=== PATIENT | female | born 1995 | race Two or more races ===

== ENCOUNTER 2017-09-16 09:49 | Emergency (ER) | payer OTHER ==
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
== END 2017-09-16 11:05 | disposition home or self-care (01) ==
LOC: JD.ED 09:49
DX: S06.0X0A Concussion without loss of consciousness, initial encounter (principal); V43.62XA Car passenger injured in collision with other type car in traffic accident, initial encounter
CPT/HCPCS: 99283

== ENCOUNTER 2018-06-28 19:18 | Emergency (ER) | payer BC ==
[2018-06-28] MEDS ORDERED: Sodium Chloride 0.9% 1,000 ML IV STA (19:49)
[2018-06-28] MEDS ORDERED: Sodium Chloride 0.9% 10 ML Syringe FLUSH PRN (19:49)
[2018-06-28] MEDS ORDERED: Metoclopramide 10 MG/2 ML SDV IVPUSH ONE (19:49)
--- NOTE | 2018-06-28 20:15 | EDM.PDOC ---
ED HPI GENERAL MEDICAL PROBLEM - General Chief Complaint: Gastrointestinal Problem Stated Complaint: VOMMITTING 24 HOURS 20 WEEKS PREG Time Seen by Provider: 06/28/18 19:39 Source of Information: Reports: Patient History Limitations: Reports: No Limitations - History of Present Illness INITIAL COMMENTS - FREE TEXT/NARRATIVE: The patient presents with vomiting for the past 14 hours. She is G1 at 20 weeks gestation. Her LNMP was February 08. She had some generalized abdominal pain but that is better. She denies fever, chills, cough, congestion, diarrhea or dysuria. She had some morning sickness in the first week or 2 of her but not much since. She has not been around anyone who is sick and she does not think she ate any bad food. She has no medical problems. Onset: Gradual Duration: Hour(s): (14) Location: Reports: Abdomen Quality: Reports: Ache Severity: Mild Improves with: Reports: None Worsens with: Reports: None Associated Symptoms: Reports: Nausea/Vomiting. Denies: Chest Pain, Cough, Fever /Chills, Headaches, Shortness of Breath Abdomen Pain Score (Numeric/FACES): 1 - Related Data Allergies Allergy/AdvReac Type Severity Reaction Status Date / Time No Known Allergies Allergy Verified 09/16/17 10:08 Home Meds: Home Meds Ondansetron [Zofran ODT] 4 mg PO Q6H PRN #20 tab.dis 06/28/18 [Rx] [id number]/Iron Fumarate/FA/DSS [ 19 Tablet] 1 tab PO DAILY 06/28/18 [ History] Past Medical History - Past Health History Medical/Surgical History: Denies Medical/Surgical History [employer] History: Reports: Social & Family History - Tobacco Use Smoking Status *Q: Never Smoker - Caffeine Use Caffeine Use: Reports: Coffee, Soda - Recreational Drug Use Recreational Drug Use: No ED ROS GENERAL - Review of Systems Review Of Systems: See Below Constitutional: Reports: No Symptoms HEENT: Reports: No Symptoms Respiratory: Reports: No Symptoms Cardiovascular: Reports: No Symptoms Endocrine: Reports: No Symptoms GI/Abdominal: Reports: Abdominal Pain, Nausea, Vomiting. Denies: Diarrhea : Reports: No Symptoms Musculoskeletal: Reports: No Symptoms Skin: Reports: No Symptoms ED EXAM, GI/ABD - Physical Exam Exam: See Below Exam Limited By: No Limitations General Appearance: Alert, No Apparent Distress Ears: Normal External Exam Nose: Normal Inspection Head: Atraumatic, Normocephalic Neck: Normal Inspection Respiratory/Chest: No Respiratory Distress, Lungs Clear, Normal Breath Sounds Cardiovascular: Regular Rate, Rhythm, No Edema, No Murmur GI/Abdominal Exam: Soft, Non-Tender, Other (Uterus is nontender and is at the umbilicus) Course - Vital Signs Last Recorded V/S: Last Vital Signs Temp 97.5 F 06/28/18 19:33 Pulse 109 H 06/28/18 19:33 Resp 20 06/28/18 19:33 BP 108/66 06/28/18 19:33 Pulse Ox 100 06/28/18 19:33 - Orders/Labs/Meds Orders: Active Orders 24 hr Category Date Time Status Peripheral IV Care [RC] . DIRECTED Care 06/28/18 19:49 Active CBC WITH AUTO DIFF [HEME] Stat Lab 06/28/18 19:55 Results UA W/MICROSCOPIC [URIN] Stat Lab 06/28/18 21:05 Results Sodium Chloride 0.9% [Saline Flush] Med 06/28/18 19:49 Active 10 ml FLUSH ASDIRECTED PRN ED Antiemetic Medication Reflex [OM.PC] Stat Oth 06/28/18 19:49 Ordered Peripheral IV Insertion Adult [OM.PC] Stat Oth 06/28/18 19:49 Ordered Medication Orders Sodium Chloride (Saline Flush) 10 ml FLUSH ASDIRECTED PRN PRN Reason: Keep Vein Open Last Admin: 06/28/18 19:59 Dose: 10 ml Labs: Laboratory Tests 06/28/18 06/28/18 06/28/18 Range/Units 19:55 19:55 21:05 WBC 11.08 H (3.98-10.04) K/mm3 RBC 4.05 (3.98-5.22) M/mm3 Hgb 12.3 (11.2-15.7) gm/L Hct 37.5 (34.1-44.9) % MCV 92.6 (79.4-94.8) fl MCH 30.4 (25.6-32.2) pg MCHC 32.8 (32.2-35.5) g/dl RDW Std Deviation 44.7 (36.4-46.3) fL Plt Count 189 (182-369) K/mm3 MPV 11.6 (9.4-12.3) fl Neut % (Auto) 89.2 H (34.0-71.1) % Lymph % (Auto) 4.9 L (19.3-51.7) % [place] % (Auto) 5.3 (4.7-12.5) % Eos % (Auto) 0 L (0.7-5.8) Baso % (Auto) 0.1 (0.1-1.2) % Neut # (Auto) 9.88 H (1.56-6.13) K/mm3 Lymph # (Auto) 0.54 L (1.18-3.74) K/mm3 [place] # (Auto) 0.59 H (0.24-0.36) K/mm3 Eos # (Auto) 0.00 L (0.04-0.36) K/mm3 Baso # (Auto) 0.01 (0.01-0.08) K/mm3 Sodium 139 (136-145) mEq/L Potassium 3.6 (3.5-5.1) mEq/L Chloride 103 (98-107) mEq/L Carbon Dioxide 26 (21-32) mEq/L Anion Gap 13.6 (5-15) BUN 9 (7-18) mg/dL Creatinine 0.5 L (0.55-1.02) mg/dL Est Cr Clr Drug Dosing 152.40 mL/min Estimated GFR (MDRD) > 60 (>60) mL/min BUN/Creatinine Ratio 18.0 (14-18) Glucose 116 H (74-106) mg/dL Calcium 8.9 (8.5-10.1) mg/dL Total Bilirubin 0.7 (0.2-1.0) mg/dL AST 33 (15-37) U/L ALT 34 (14-59) U/L Alkaline Phosphatase 94 (46-116) U/L Total Protein 6.6 (6.4-8.2) g/dl Albumin 3.0 L (3.4-5.0) g/dl Globulin 3.6 gm/dL Albumin/Globulin Ratio 0.8 L (1-2) Urine Color Yellow (Yellow) Urine Appearance Clear (Clear) Urine pH 6.0 (5.0-8.0) Ur Specific [place] > or = 1.030 (1.005-1.030) Urine Protein 1+ H (Negative) Urine Glucose (UA) Negative (Negative) Urine Ketones 3+ H (Negative) Urine Occult Blood Trace-lysed H (Negative) Urine Nitrite Negative (Negative) Urine Bilirubin Negative (Negative) Urine Urobilinogen 0.2 (0.2-1.0) Ur Leukocyte Esterase Negative (Negative) Meds: Medications Generic Name Dose Route Start Last Admin Trade Name Freq PRN Reason Stop Dose Admin Sodium Chloride 10 ml 06/28/18 19:49 06/28/18 19:59 Saline Flush FLUSH 10 ml ASDIRECTED PRN Administration Keep Vein Open Discontinued Medications Generic Name Dose Route Start Last Admin Trade Name Freq PRN Reason Stop Dose Admin Sodium Chloride 1,000 mls @ 1,000 mls/hr 06/28/18 19:49 06/28/18 19:59 Normal Saline IV 06/28/18 20:48 1,000 mls/hr .BOLUS STA Administration Metoclopramide HCl 10 mg 06/28/18 19:49 06/28/18 19:59 Reglan IVPUSH 06/28/18 19:50 10 mg ONETIME ONE Administration - Re-Assessments/Exams Free Text/Narrative Re-Assessment/Exam: 06/28/18 20:15 I ordered an IV NS 1L bolus, reglan 10mg IV, labs and UA. 06/28/18 20:46 FHTs were 152. 06/28/18 21:17 Her WBC was slightly elevated at 11.08. Her CMP looks good. She feels better. She would like to try something to drink and eat. I am waiting on the UA. 06/28/18 21:32 Her urine shows no UTI. I will discharge her home with some zofran. Departure - Departure Time of Disposition: 21:35 Disposition: Home, Self-Care 01 Condition: Good Clinical Impression: Qualifiers: Weeks of gestation: 20 weeks Qualified Code(s): Z3A.20 - 20 weeks gestation of Vomiting Qualifiers: Vomiting type: unspecified Vomiting Intractability: non-intractable Nausea presence: with nausea Qualified Code(s): R11.2 - Nausea with vomiting, unspecified - Discharge Information *PRESCRIPTION DRUG MONITORING PROGRAM REVIEWED*: Not Applicable *COPY OF PRESCRIPTION DRUG MONITORING REPORT IN PATIENT ALVERTO: Not Applicable Prescriptions: Ondansetron [Zofran ODT] 4 mg PO Q6H PRN #20 tab.dis PRN Reason: Nausea\vomiting Referrals: Tess Coyle MD [Primary Care Provider] - 1 Week Forms: ED Department Discharge Additional Instructions: Drink plenty of fluids. Take the zofran every 6 hours as needed for nausea or vomiting. Please return if you are worse. - My Orders Last 24 Hours: My Active Orders 06/28/18 19:49 Peripheral IV Care [RC] . DIRECTED Sodium Chloride 0.9% [Saline Flush] 10 ml FLUSH ASDIRECTED PRN ED Antiemetic Medication Reflex [OM.PC] Stat Peripheral IV Insertion Adult [OM.PC] Stat 06/28/18 19:55 CBC WITH AUTO DIFF [HEME] Stat 06/28/18 21:05 UA W/MICROSCOPIC [URIN] Stat - Assessment/Plan Last 24 Hours: My Active Orders 06/28/18 19:49 Peripheral IV Care [RC] . DIRECTED Sodium Chloride 0.9% [Saline Flush] 10 ml FLUSH ASDIRECTED PRN ED Antiemetic Medication Reflex [OM.PC] Stat Peripheral IV Insertion Adult [OM.PC] Stat 06/28/18 19:55 CBC WITH AUTO DIFF [HEME] Stat 06/28/18 21:05 UA W/MICROSCOPIC [URIN] Stat
== END 2018-06-28 21:40 | disposition home or self-care (01) ==
LOC: JD.ED 19:18
DX: O21.9 Vomiting of pregnancy, unspecified (principal); Z79.899 Other long term (current) drug therapy; Z3A.20 20 weeks gestation of pregnancy
CPT/HCPCS: 36415; 80053; 81001; 85025; 96374; 99284; J2765; J7040; 99283

== ENCOUNTER 2020-08-22 02:44 | Emergency (ER) | payer SELFPAY ==
--- NOTE | 2020-08-22 03:15 | EDM.PDOC ---
ED HPI GENERAL MEDICAL PROBLEM - General Chief Complaint: Abdominal Pain Stated Complaint: LOW SUGAR LEVELS Time Seen by Provider: 08/22/20 02:53 Source of Information: Reports: Patient, Family History Limitations: Reports: No Limitations - History of Present Illness INITIAL COMMENTS - FREE TEXT/NARRATIVE: This is a 25-year-old female. Apparently earlier this morning she started having some lower abdominal pain and possibly cramping. She got nauseated and then became pale and dizzy and weak and thought maybe her blood sugar was getting low so she drank some juice and began to feel better but she continued to have the lower abdominal pain. She believes her menstrual period is going to be next week so this is kind of out of character to have pain down there. And at times with her menstrual period she has had moments of hypoglycemia. She felt like she was having hypoglycemia with the abdominal pain this morning so she comes to the ER for evaluation. Her bedside glucose was 92 in the ER she did not check her blood sugar at home. She is still complaining of some lower abdominal soreness but much of the pain has resolved now. She states also last Monday she took Plan B which is a control method because she thought she might be in an effort not to become . She denies any fever or chills no cough no other illnesses. When she was having the severe lower abdominal pain and the paleness and dizziness and nausea she did go to the bathroom and have a normal bowel movement and no diarrhea. Lower Abdomen Pain Score (Numeric/FACES): 4 - Related Data Allergies Allergy/AdvReac Type Severity Reaction Status Date / Time No Known Allergies Allergy Verified 08/22/20 02:58 Home Meds: Home Meds Prenat 115/Iron Fum/Folic/Dss [ 19 Tablet] 1 tab PO DAILY 06/28/18 [History] Docusate Sodium [Colace] 100 mg PO BID PRN cap 11/15/18 [Rx] Ibuprofen [Motrin] 600 mg PO Q6H PRN tablet 11/15/18 [Rx] Past Medical History - Past Health History Medical/Surgical History: Denies Medical/Surgical History Cardiovascular History: Reports: None Respiratory History: Reports: None Gastrointestinal History: Reports: G[employer]OR History: Reports: Endocrine/Metabolic History: Reports: Other (See Below) Other Endocrine/Metabolic History: hypoglycemia Social & Family History - Family History Family Medical History: No Pertinent Family History - Tobacco Use Tobacco Use Status *Q: Never Tobacco User Second Hand Smoke Exposure: No - Caffeine Use Caffeine Use: Reports: Soda - Recreational Drug Use Recreational Drug Use: No ED ROS GENERAL - Review of Systems Review Of Systems: See Below Constitutional: Reports: Weakness. Denies: Fever, Chills HEENT: Reports: No Symptoms Respiratory: Denies: Shortness of Breath, Cough Cardiovascular: Denies: Chest Pain Endocrine: Reports: No Symptoms GI/Abdominal: Reports: Abdominal Pain, Nausea. Denies: Constipation, Diarrhea, Vomiting : Denies: Discharge, Dysuria Musculoskeletal: Reports: No Symptoms Skin: Reports: No Symptoms Neurological: Reports: Dizziness Psychiatric: Reports: No Symptoms Hematologic/Lymphatic: Reports: No Symptoms ED EXAM, GI/ABD - Physical Exam Exam: See Below Exam Limited By: No Limitations General Appearance: Alert, WD/WN, No Apparent Distress Eyes: Bilateral: Normal Appearance Ears: Normal External Exam Throat/Mouth: Normal Voice, No Airway Compromise Head: Normocephalic Neck: Supple Respiratory/Chest: No Respiratory Distress, Lungs Clear, Normal Breath Sounds Cardiovascular: Regular Rate, Rhythm, No Murmur GI/Abdominal Exam: Soft, Other (There is some mild soreness in the lower abdomen across the entire lower abdomen not 1 side or the other, the upper abdomen does not appear to be tender, she does have bowel sounds.) Back Exam: Normal Inspection, Full Range of Motion Extremities: Normal Inspection, Normal Range of Motion Neurological: Alert, Oriented Psychiatric: Normal Affect, Normal Mood Skin Exam: Warm, Dry Course - Vital Signs Last Recorded V/S: Last Vital Signs Temp 96.9 F 08/22/20 02:58 Pulse 90 08/22/20 02:58 Resp 17 08/22/20 02:58 BP 110/87 08/22/20 02:58 Pulse Ox 100 08/22/20 02:58 - Orders/Labs/Meds Orders: Active Orders 24 hr Category Date Time Status Blood Glucose Check, Bedside [RC] ONETIME Care 08/22/20 03:00 Active Labs: Laboratory Tests 08/22/20 08/22/20 08/22/20 Range/Units 02:53 03:25 03:25 WBC 6.65 (3.98-10.04) K/mm3 RBC 4.28 (3.98-5.22) M/mm3 Hgb 13.2 (11.2-15.7) gm/dl Hct 40.2 (34.1-44.9) % MCV 93.9 (79.4-94.8) fl MCH 30.8 (25.6-32.2) pg MCHC 32.8 (32.2-35.5) g/dl RDW Std Deviation 42.9 (36.4-46.3) fL Plt Count 190 (182-369) K/mm3 MPV 11.9 (9.4-12.3) fl Neut % (Auto) 58.2 (34.0-71.1) % Lymph % (Auto) 33.1 (19.3-51.7) % [place] % (Auto) 7.5 (4.7-12.5) % Eos % (Auto) 0.8 (0.7-5.8) Baso % (Auto) 0.2 (0.1-1.2) % Neut # (Auto) 3.88 (1.56-6.13) K/mm3 Lymph # (Auto) 2.20 (1.18-3.74) K/mm3 [place] # (Auto) 0.50 H (0.24-0.36) K/mm3 Eos # (Auto) 0.05 (0.04-0.36) K/mm3 Baso # (Auto) 0.01 (0.01-0.08) K/mm3 Sodium (136-145) mEq/L Potassium (3.5-5.1) mEq/L Chloride (98-107) mEq/L Carbon Dioxide (21-32) mEq/L Anion Gap (5-15) BUN (7-18) mg/dL Creatinine (0.55-1.02) mg/dL Est Cr Clr Drug Dosing mL/min Estimated GFR (MDRD) (>60) mL/min BUN/Creatinine Ratio (14-18) Glucose (74-106) mg/dL POC Glucose 92 (70-99) mg/dL Calcium (8.5-10.1) mg/dL Total Bilirubin (0.2-1.0) mg/dL AST (15-37) U/L ALT (14-59) U/L Alkaline Phosphatase (46-116) U/L Total Protein (6.4-8.2) g/dl Albumin (3.4-5.0) g/dl Globulin gm/dL Albumin/Globulin Ratio (1-2) HCG, Qual (NEGATIVE) Urine Color Tyesha H (Yellow) Urine Appearance Clear (Clear) Urine pH 6.5 (5.0-8.0) Ur Specific [place] > or = 1.030 (1.005-1.030) Urine Protein 1+ H (Negative) Urine Glucose (UA) Negative (Negative) Urine Ketones Negative (Negative) Urine Occult Blood Trace-intact H (Negative) Urine Nitrite Negative (Negative) Urine Bilirubin 1+ H (Negative) Urine Urobilinogen 0.2 (0.2-1.0) Ur Leukocyte Esterase Trace H (Negative) Urine RBC 0-5 (0-5) /hpf Urine WBC 0-5 (0-5) /hpf Ur Squamous Epith Cells 5-10 H (0-5) /hpf Urine Bacteria Few (FEW) /hpf Urine Mucus Many H (FEW) /hpf 08/22/20 08/22/20 Range/Units 03:25 03:25 WBC (3.98-10.04) K/mm3 RBC (3.98-5.22) M/mm3 Hgb (11.2-15.7) gm/dl Hct (34.1-44.9) % MCV (79.4-94.8) fl MCH (25.6-32.2) pg MCHC (32.2-35.5) g/dl RDW Std Deviation (36.4-46.3) fL Plt Count (182-369) K/mm3 MPV (9.4-12.3) fl Neut % (Auto) (34.0-71.1) % Lymph % (Auto) (19.3-51.7) % [place] % (Auto) (4.7-12.5) % Eos % (Auto) (0.7-5.8) Baso % (Auto) (0.1-1.2) % Neut # (Auto) (1.56-6.13) K/mm3 Lymph # (Auto) (1.18-3.74) K/mm3 [place] # (Auto) (0.24-0.36) K/mm3 Eos # (Auto) (0.04-0.36) K/mm3 Baso # (Auto) (0.01-0.08) K/mm3 Sodium 142 (136-145) mEq/L Potassium 4.1 (3.5-5.1) mEq/L Chloride 105 (98-107) mEq/L Carbon Dioxide 28 (21-32) mEq/L Anion Gap 13.1 (5-15) BUN 18 (7-18) mg/dL Creatinine 0.7 (0.55-1.02) mg/dL Est Cr Clr Drug Dosing 99.85 mL/min Estimated GFR (MDRD) > 60 (>60) mL/min BUN/Creatinine Ratio 25.7 H (14-18) Glucose 141 H (74-106) mg/dL POC Glucose (70-99) mg/dL Calcium 8.1 L (8.5-10.1) mg/dL Total Bilirubin 0.9 (0.2-1.0) mg/dL AST 16 (15-37) U/L ALT 24 (14-59) U/L Alkaline Phosphatase 70 (46-116) U/L Total Protein 7.3 (6.4-8.2) g/dl Albumin 4.3 (3.4-5.0) g/dl Globulin 3.0 gm/dL Albumin/Globulin Ratio 1.4 (1-2) HCG, Qual Negative (NEGATIVE) Urine Color (Yellow) Urine Appearance (Clear) Urine pH (5.0-8.0) Ur Specific [place] (1.005-1.030) Urine Protein (Negative) Urine Glucose (UA) (Negative) Urine Ketones (Negative) Urine Occult Blood (Negative) Urine Nitrite (Negative) Urine Bilirubin (Negative) Urine Urobilinogen (0.2-1.0) Ur Leukocyte Esterase (Negative) Urine RBC (0-5) /hpf Urine WBC (0-5) /hpf Ur Squamous Epith Cells (0-5) /hpf Urine Bacteria (FEW) /hpf Urine Mucus (FEW) /hpf - Re-Assessments/Exams Free Text/Narrative Re-Assessment/Exam: 08/22/20 04:10 Spoke to the patient and her significant other regarding the lab results. Her white count is normal her electrolytes were good her glucose is now 141 and she is not . Her urine does show some contamination and slight amount of blood but is very concentrated and I encouraged her to drink more fluids. They want to go home since she is feeling better and most of the soreness in her lo wer abdomen has resolved. Departure - Departure Time of Disposition: 04:10 Disposition: Home, Self-Care 01 Condition: Good Clinical Impression: Lower abdominal pain, Weakness, Dizziness, nonspecific - Discharge Information *PRESCRIPTION DRUG MONITORING PROGRAM REVIEWED*: Not Applicable *COPY OF PRESCRIPTION DRUG MONITORING REPORT IN PATIENT ALVERTO: Not Applicable Instructions: Hypoglycemia Referrals: PCP,None [Primary Care Provider] - Forms: ED Department Discharge Additional Instructions: Gentle activity today, continue with your normal diet and calorie intake, drink more fluids, follow-up with your family doctor this coming week if you continue to have symptoms or return to the ER Sepsis Event Note (ED) - Evaluation Sepsis Screening Result: No Definite Risk - Focused Exam Vital Signs: Vital Signs Temp Pulse Resp BP Pulse Ox 08/22/20 02:58 96.9 F 90 17 110/87 100 - My Orders Last 24 Hours: My Active Orders 08/22/20 03:00 Blood Glucose Check, Bedside [RC] ONETIME - Assessment/Plan Last 24 Hours: My Active Orders 08/22/20 03:00 Blood Glucose Check, Bedside [RC] ONETIME
== END 2020-08-22 04:20 | disposition home or self-care (01) ==
LOC: JD.ED 02:44
DX: R10.31 Right lower quadrant pain (principal); R10.32 Left lower quadrant pain; R53.1 Weakness; R42 Dizziness and giddiness; Z79.899 Other long term (current) drug therapy
CPT/HCPCS: 36415; 80053; 81001; 82947; 84703; 85025; 99283; 99284

== ENCOUNTER 2020-09-09 20:06 | Emergency (ER) | payer SELFPAY ==
[2020-09-09] MEDS ORDERED: Sodium Chloride 0.9% 10 ML Syringe FLUSH PRN (20:22)
--- NOTE | 2020-09-09 20:35 | EDM.PDOC ---
ED HPI GENERAL MEDICAL PROBLEM - General Chief Complaint: [employer] Problem Stated Complaint: 6WKS PG ABDOMINAL PAIN BLEEDING Time Seen by Provider: 09/09/20 20:22 Source of Information: Reports: Patient, RN Notes Reviewed History Limitations: Reports: No Limitations - History of Present Illness INITIAL COMMENTS - FREE TEXT/NARRATIVE: Patient is a 25-year-old female who presents to the ER for her vaginal bleeding and . She believes she is roughly 6 weeks . She is a , [employer] is Dr. Coyle. Patient notes that around 6 PM tonight, she developed some abdomen cramping and light vaginal bleeding, not enough to warrant a panti- liner. The patient became concerned because she did not have vaginal bleeding and cramping with her last , she did not take anything for the pain management prior to coming to the ER. Patient denies any other sick-like symptoms, fever/chills, cough/shortness of breath, nausea/vomiting/diarrhea. Further denies any dysuria, urinary frequency or urgency. Patient notes that she had a bowel movement, which was normal for her yesterday. Bilateral Lower Abdomen Pain Score (Numeric/FACES): 4 - Related Data Allergies Allergy/AdvReac Type Severity Reaction Status Date / Time No Known Allergies Allergy Verified 09/09/20 20:13 Home Meds: Home Meds Prenat 115/Iron Fum/Folic/Dss [ 19 Tablet] 1 tab PO DAILY 06/28/18 [History] Docusate Sodium [Colace] 100 mg PO BID PRN cap 11/15/18 [Rx] Ibuprofen [Motrin] 600 mg PO Q6H PRN tablet 11/15/18 [Rx] Past Medical History - Past Health History Medical/Surgical History: Denies Medical/Surgical History Cardiovascular History: Reports: None Respiratory History: Reports: None Gastrointestinal History: Reports: GERD [employer] History: Reports: Other [employer] History: Endocrine/Metabolic History: Reports: Other (See Below) Other Endocrine/Metabolic History: hypoglycemia Social & Family History - Family History Family Medical History: No Pertinent Family History - Tobacco Use Tobacco Use Status *Q: Never Tobacco User - Caffeine Use Caffeine Use: Reports: Soda - Recreational Drug Use Recreational Drug Use: No ED ROS GENERAL - Review of Systems Review Of Systems: Comprehensive ROS is negative, except as noted in HPI. ED EXAM - Physical Exam Exam: See Below Exam Limited By: No Limitations General Appearance: Alert, WD/WN, No Apparent Distress Respiratory/Chest: No Respiratory Distress, Lungs Clear, Normal Breath Sounds, No Accessory Muscle Use, Chest Non-Tender Cardiovascular: Normal Peripheral Pulses, Regular Rate, Rhythm GI/Abdominal Exam: Normal Bowel Sounds, Soft, No Distention, No Mass, Tender (slight amount) Heart Tones: Not [place] Movement: Not Appreciated Extremities: Normal Inspection, Normal Capillary Refill Neurological: Alert, Oriented, Normal Cognition, No Motor/Sensory Deficits Psychiatric: Normal Affect, Normal Mood, Anxious (slightly) Skin Exam: Warm, Dry, Intact, Normal Color, No Rash Course - Vital Signs Last Recorded V/S: Last Vital Signs Temp 96.5 F L 09/09/20 20:13 Pulse 105 H 09/09/20 20:13 Resp 17 09/09/20 20:13 BP 120/82 09/09/20 20:13 Pulse Ox 98 09/09/20 20:13 - Orders/Labs/Meds Orders: Active Orders 24 hr Category Date Time Status Peripheral IV Care [RC] . DIRECTED Care 09/09/20 20:23 Ordered OB Transvaginal [US] Stat Exams 09/09/20 20:22 Ordered PATIENT RETYPE [BBK] Routine Lab 09/09/20 21:22 Ordered Sodium Chloride 0.9% [Saline Flush] Med 09/09/20 20:22 Ordered 10 ml FLUSH ASDIRECTED PRN Peripheral IV Insertion Adult [OM.PC] Stat Oth 09/09/20 20:22 Ordered Medication Orders Sodium Chloride (Sodium Chloride 0.9% 10 Ml Syringe) 10 ml FLUSH ASDIRECTED PRN PRN Reason: Keep Vein Open Labs: Laboratory Tests 09/09/20 09/09/20 09/09/20 Range/Units 20:50 20:50 20:50 WBC 7.23 (3.98-10.04) K/mm3 RBC 4.12 (3.98-5.22) M/mm3 Hgb 12.5 (11.2-15.7) gm/dl Hct 38.8 (34.1-44.9) % MCV 94.2 (79.4-94.8) fl MCH 30.3 (25.6-32.2) pg MCHC 32.2 (32.2-35.5) g/dl RDW Std Deviation 42.7 (36.4-46.3) fL Plt Count 207 (182-369) K/mm3 MPV 11.8 (9.4-12.3) fl Neut % (Auto) 64.1 (34.0-71.1) % Lymph % (Auto) 27.4 (19.3-51.7) % [place] % (Auto) 7.7 (4.7-12.5) % Eos % (Auto) 0.4 L (0.7-5.8) Baso % (Auto) 0.1 (0.1-1.2) % Neut # (Auto) 4.63 (1.56-6.13) K/mm3 Lymph # (Auto) 1.98 (1.18-3.74) K/mm3 [place] # (Auto) 0.56 H (0.24-0.36) K/mm3 Eos # (Auto) 0.03 L (0.04-0.36) K/mm3 Baso # (Auto) 0.01 (0.01-0.08) K/mm3 HCG, Quant 409.0 mIU/mL Blood Type O POSITIVE Meds: Medications Generic Name Dose Route Start Last Admin Trade Name Freq PRN Reason Stop Dose Admin Sodium Chloride 10 ml 09/09/20 20:22 Sodium Chloride 0.9% 10 Ml Syringe FLUSH ASDIRECTED PRN Keep Vein Open - Re-Assessments/Exams Free Text/Narrative Re-Assessment/Exam: 09/09/20 20:34 Patient presents to the ER for bleeding and , we will get IV established, get some baseline labs, and have a transvaginal ultrasound performed for evaluation. 09/09/20 21:48 Patient's labs have resulted, CBC demonstrates no remarkable findings, hem oglobin is within normal limits, hCG is 409, likely she could not be as far along as she thinks she is more along the lines of possibly 4 to 5 weeks. Blood type is O+. Ultrasound has been taken, just awaiting report. 09/09/20 22:01 Ultrasound demonstrates no sign of an intrauterine gestation at this time. There is a moderate amount of nonspecific free fluid present in the pelvis, I will go over results with your [employer] on-call and see what her clinical impression is, versus early not visualized at today's visit versus miscarriage. 09/09/20 22:14 Dr. Osborne thought it could be early versus just not visualized at today's visit. She notes to have the patient follow-up with Dr. Coyle in 2 days for repeat lab work. Dr. Osborne states that he should not s ee a gestational sac until the hCG reaches about 1500. Departure - Departure Time of Disposition: 22:15 Disposition: Home, Self-Care 01 Condition: Good Clinical Impression: Vaginal bleeding during Qualifiers: Weeks of gestation: less than 8 weeks Qualified Code(s): Z3A.01 - Less than 8 weeks gestation of - Discharge Information *PRESCRIPTION DRUG MONITORING PROGRAM REVIEWED*: No *COPY OF PRESCRIPTION DRUG MONITORING REPORT IN PATIENT ALVERTO: No Instructions: Abdominal Pain During , [id number] Referrals: Tess Coyle MD [Primary Care Provider] - Forms: ED Department Discharge Additional Instructions: You were evaluated in the ER today regarding your abdominal pain/vaginal bleeding in . You did have some labs drawn, and these were within normal limits, your hCG level was 406 , your blood type is O+. Although your ultrasound did not demonstrate a intrauterine gestational sac at this time, discussion with her [employer] on-call notes that a hCG level as low as 400 should not produce a gestational sac at this time yet, you should not see a gestational sac on ultrasound until you reach an hCG level of 1500. Highly likely that you are off a little bit on your dates of , and the is earlier than you had anticipated. Like more around 3 to 4 weeks versus 6 weeks. Recommend that you do not lift anything heavier than a gallon of milk (5 lbs), do not engage in sexual activities, try to get as much pelvic rest as possible for the next few days. Please try not to exert yourself, rest and relax, and take it easy. If you are bleeding through more than 1-2 maxi pads every couple hours, this would be cause for concern to return to the ER for immediate management. Highly and strongly recommend you follow-up with Dr. Stinson, in 2 days for repeat lab work, and or ultrasound for ongoing evaluation. Please call her office, tomorrow morning to obtain an appointment for this Friday, September 11, 2020 for ongoing evaluation Please return to the ED at any time if your symptoms change or worsen. Sepsis Event Note (ED) - Evaluation Sepsis Screening Result: No Definite Risk - Focused Exam Vital Signs: Vital Signs Temp Pulse Resp BP Pulse Ox 09/09/20 20:13 96.5 F L 105 H 17 120/82 98 - My Orders Last 24 Hours: My Active Orders 09/09/20 20:22 OB Transvaginal [US] Stat Sodium Chloride 0.9% [Saline Flush] 10 ml FLUSH ASDIRECTED PRN Peripheral IV Insertion Adult [OM.PC] Stat 09/09/20 20:23 Peripheral IV Care [RC] . DIRECTED 09/09/20 21:22 PATIENT RETYPE [BBK] Routine - Assessment/Plan Last 24 Hours: My Active Orders 09/09/20 20:22 OB Transvaginal [US] Stat Sodium Chloride 0.9% [Saline Flush] 10 ml FLUSH ASDIRECTED PRN Peripheral IV Insertion Adult [OM.PC] Stat 09/09/20 20:23 Peripheral IV Care [RC] . DIRECTED 09/09/20 21:22 PATIENT RETYPE [BBK] Routine
--- NOTE | 2020-09-10 08:41 | US ---
First trimester obstetrical ultrasound: Multiple real-time images were obtained transvaginally and transabdominally. Comparison: No prior obstetrical imaging is available for current . Uterus is retroverted. No intrauterine gestational sac is seen. Right ovary shows a small hypoechoic area measuring 2.2 cm in greatest size most likely representing a collapsing cyst. Ovaries are otherwise unremarkable. Minimal free fluid is seen next to the right ovary. Small amount of fluid is also seen within the cul-de-sac. Impression: 1. No intrauterine gestational is seen. 2. Mild to moderate free fluid within the pelvis which is nonspecific. 3. Small collapsing cyst within the right ovary measuring 2.2 cm. Diagnostic code #2 I agree with preliminary report from [facility], finalized on 09/09/20, 10:58 PM CDT, code 1
== END 2020-09-09 22:30 | disposition home or self-care (01) ==
LOC: JD.ED 20:06
DX: O20.9 Hemorrhage in early pregnancy, unspecified (principal); Z3A.01 Less than 8 weeks gestation of pregnancy
CPT/HCPCS: 36415; 76817; 76817-26; 84702; 85025; 86900; 86901; 99284-25

== ENCOUNTER 2021-11-26 20:39 | Emergency (ER) | payer BC | END 2021-11-26 21:49 | disposition home or self-care (01) | LOC: JD.ED 20:39 | DX: H10.13 Acute atopic conjunctivitis, bilateral (principal) | CPT/HCPCS: 99282 ==

== ENCOUNTER 2022-06-08 13:25 | Emergency (ER) | payer BC ==
[2022-06-08] MEDS ORDERED: Sodium Chloride 0.9% 1,000 ML IV ONE (14:20)
[2022-06-08] MEDS ORDERED: Sodium Chloride 0.9% 10 ML Syringe FLUSH PRN (14:20)
[2022-06-08] MEDS ORDERED: Ondansetron 4 MG/2 ML SDV IVPUSH ONE ×2 (14:36→15:55)
[2022-06-08] MEDS ORDERED: Magnesium Sulfate/Water 2 GM in Premix Bag 1 BAG IV ONE (14:43)
[2022-06-08] MEDS ORDERED: Potassium Chloride 20 MEQ Tab.ER PO ONE (14:43)
[2022-06-08] MEDS ORDERED: Sodium Chloride 0.9% 500 ML IV ONE (15:56)
[2022-06-08] MEDS ORDERED: Acetaminophen 325 MG Tab PO ONE (16:11)
[2022-06-08 16:58] LABS: CORONAVIRUS COVID-19 NAA NEGATIVE (NEGATIVE)
== END 2022-06-08 19:37 | disposition home or self-care (01) ==
LOC: JD.ED 13:25
DX: O98.512 Other viral diseases complicating pregnancy, second trimester (principal); B34.9 Viral infection, unspecified; O21.9 Vomiting of pregnancy, unspecified; Z3A.14 14 weeks gestation of pregnancy; Z20.822 Contact with and (suspected) exposure to COVID-19; Z86.16 Personal history of COVID-19
CPT/HCPCS: 0241U; 36415; 80053; 81001; 83735; 85025; 86140; 93005; 96361; 96365; 96366; 96375; 96376; 99284; A9270; J2405; J3475; J3490; J7030; 93010